=== PATIENT | female | born 1950 | race Caucasian/White ===

== ENCOUNTER 2017-07-31 16:06 | Inpatient (IN) | payer MEDICAID, OTHER ==
[~2017-07-31] VITALS: Ht 162.6 cm; Wt 68.0 kg
[2017-07-31] MEDS ORDERED: SODIUM CHLORIDE 0.9% 1,000 ML IV ONE (16:20)
[2017-07-31] MEDS ORDERED: ONDANSETRON ODT 4 MG PO ONE (16:30)
[2017-07-31] MEDS ORDERED: PLEASE ENTER ALLERGIES MC SCH (16:30)
[2017-07-31] MEDS ORDERED: SODIUM CHLORIDE FLUSH 10ML SYR IVF ONE (16:30)
[2017-07-31] MEDS ORDERED: SODIUM CHLORIDE 0.9% 1,000ML IVBOLUS ONE (16:30)
[2017-07-31] MEDS ORDERED: ONDANSETRON ODT 4 MG ONE (16:30)
[2017-07-31] MEDS ORDERED: LORazepam 2 MG/ML, 1ML ONE (16:30)
[2017-07-31] MEDS ORDERED: LORazepam 2 MG/ML, 1ML IVPush ONE (16:30)
[2017-07-31 16:48] LABS: BASOPHILS # (AUTO) 0.05 x10^3/uL (0-0.1); BASOPHILS % (AUTO) 1 % (0-1); EOSINOPHILS # (AUTO) 0.01 x10^3/uL (0-0.4); EOSINOPHILS % (AUTO) 0 % (1-7); LYMPHOCYTES # (AUTO) 0.87 x10^3/uL (1-3.4); LYMPHOCYTES % (AUTO) 13 % (22-44); MD NO; MEAN CORPUSCULAR HEMOGLOBIN 28.7 pg (27.0-34.8); MEAN CORPUSCULAR VOLUME 86.9 fL (80-100); MONOCYTES # (AUTO) 0.53 x10^3/uL (0.2-0.8); MONOCYTES % (AUTO) 8 % (2-9); NEUTROPHILS # (AUTO) 5.17 x10^3/uL (1.8-6.8); NEUTROPHILS % (AUTO) 78 % (42-75); PLATELET COUNT 409 x10^3/uL (130-400); RED CELL DISTRIBUTION WIDTH 14.4 % (9.6-15.2)
[2017-07-31 16:57] LABS: ALANINE AMINOTRANSFERASE 22 U/L (12-78); ANION GAP 12 mmol/L (5-15); CALCIUM 9.4 mg/dL (8.5-10.1); CHLORIDE 99 mmol/L (98-107); CREATININE 1.22 mg/dL (0.55-1.02)
[2017-07-31 17:00] LABS: ALKALINE PHOSPHATASE 103 U/L (45-117); BILIRUBIN,TOTAL 0.4 mg/dL (0.2-1.0)
[2017-07-31] MEDS ORDERED: POTASSIUM CHLORIDE 20 MEQ TAB.ER.PRT ONE (17:32)
[2017-07-31] MEDS ORDERED: NS + 40MEQ KCL 1,000 ML IV ONE (17:32)
[2017-07-31] MEDS ORDERED: DIAZ5TAB PO (17:48)
[2017-07-31] MEDS ORDERED: HYDR25TA6 PO (17:48)
[2017-07-31] MEDS ORDERED: ESCI20TA10 PO (17:48)
[2017-07-31] MEDS ORDERED: CARB200T PO (17:48)
[2017-07-31] MEDS ORDERED: OMEP-110 PO (17:51)
[2017-07-31] MEDS ORDERED: PROP80CA12 PO (17:53)
[2017-07-31] MEDS ORDERED: POTASSIUM CHLORIDE 40 MEQ in SODIUM CHLORIDE 0.9% 1,000 ML IV ONE (18:00)
[2017-07-31] MEDS ORDERED: POTASSIUM CHLORIDE 20 MEQ TAB.ER.PRT PO ONE (18:00)
[2017-07-31] MEDS ORDERED: SODIUM CHLORIDE FLUSH 10ML SYR IVF PRN (18:30)
[2017-07-31] MEDS ORDERED: BISACODYL 10 MG SUPP PR PRN (19:00)
[2017-07-31] MEDS ORDERED: ONDANSETRON 2MG/ML, 2ML IVPush PRN (19:00)
[2017-07-31] MEDS ORDERED: ACETAMINOPHEN 325 MG TABLET PO PRN (19:00)
[2017-07-31] MEDS ORDERED: DIAZEPAM 5 MG TABLET ONE (20:24)
[2017-07-31] MEDS ORDERED: METOCLOPRAMIDE 5 MG/ML, 2ML ONE (20:24)
[2017-07-31] MEDS: METOCLOPRAMIDE 5 MG/ML, 2ML IVPush PRN (20:28)
[2017-07-31] MEDS: DIAZEPAM 5 MG TABLET PO SCH (20:28)
[2017-07-31 21:00] VITALS: BP 175/87
[2017-07-31] MEDS: NS + 40MEQ KCL 1,000 ML IV SCH (23:21)
[2017-07-31] MEDS: HEPARIN 5,000 UNITS/ML, 1ML SQ SCH (23:21)
[2017-07-31] MEDS: OXYcodone IR 5MG TABLET PO PRN (23:22)
[2017-07-31] MEDS: PROPRANOLOL 40 MG TABLET PO SCH (23:22)
[2017-07-31] MEDS: CARBAMAZEPINE 200 MG TABLET PO SCH (23:22)
[2017-08-01 00:52] VITALS: BP 167/96
[2017-08-01 04:08] LABS: MICROSCOPIC NOT IND
[2017-08-01 04:10] LABS: CULTURE INDICATED? NO
[2017-08-01] MEDS: METOCLOPRAMIDE 5 MG/ML, 2ML IVPush PRN (04:14)
[2017-08-01] MEDS: CARBAMAZEPINE 200 MG TABLET PO SCH ×4 (06:00→21:50)
[2017-08-01 06:03] LABS: ALBUMIN 3.7 g/dL (3.4-5.0); ANION GAP 10 mmol/L (5-15); CALCIUM 7.8 mg/dL (8.5-10.1); CHLORIDE 109 mmol/L (98-107)
[2017-08-01 06:04] LABS: BASOPHILS # (AUTO) 0.02 x10^3/uL (0-0.1); BASOPHILS % (AUTO) 0 % (0-1); EOSINOPHILS % (AUTO) 0 % (1-7); LYMPHOCYTES # (AUTO) 0.88 x10^3/uL (1-3.4); LYMPHOCYTES % (AUTO) 11 % (22-44); MD NO; MEAN CORPUSCULAR HEMOGLOBIN 29.2 pg (27.0-34.8); MEAN CORPUSCULAR HGB CONC 33.1 g/dL (32.4-35.8); MEAN CORPUSCULAR VOLUME 88.4 fL (80-100); MEAN PLATELET VOLUME 8.2 fL (7.4-10.4); MONOCYTES # (AUTO) 0.23 x10^3/uL (0.2-0.8); MONOCYTES % (AUTO) 3 % (2-9); NEUTROPHILS # (AUTO) 6.93 x10^3/uL (1.8-6.8); NEUTROPHILS % (AUTO) 86 % (42-75); PLATELET COUNT 395 x10^3/uL (130-400); RED BLOOD COUNT 4.85 x10^6/uL (3.82-5.3); RED CELL DISTRIBUTION WIDTH 14.3 % (9.6-15.2)
[2017-08-01 06:07] LABS: ALANINE AMINOTRANSFERASE 21 U/L (12-78); ALKALINE PHOSPHATASE 91 U/L (45-117); BILIRUBIN,TOTAL 0.4 mg/dL (0.2-1.0); CREATININE 0.84 mg/dL (0.55-1.02); TOTAL PROTEIN 7.4 g/dL (6.4-8.2)
[2017-08-01] MEDS: HEPARIN 5,000 UNITS/ML, 1ML SQ SCH ×3 (06:18→22:00)
[2017-08-01] MEDS: NS + 40MEQ KCL 1,000 ML IV SCH (06:18)
[2017-08-01] MEDS: OXYcodone IR 5MG TABLET PO PRN ×3 (06:18→21:50)
[2017-08-01 08:24] VITALS: BP 136/75
[2017-08-01] MEDS ORDERED: ONDANSETRON ODT 4 MG PO PRN (08:30)
[2017-08-01] MEDS: CITALOPRAM 20 MG TABLET PO SCH (09:29)
[2017-08-01] MEDS: ISOSORBIDE DINITRATE 10 MG TABLET PO SCH ×3 (09:30→21:50)
[2017-08-01] MEDS: PROPRANOLOL 40 MG TABLET PO SCH ×2 (09:31→21:55)
[2017-08-01] MEDS: DIAZEPAM 5 MG TABLET PO SCH ×3 (09:37→21:51)
[2017-08-01] MEDS ORDERED: PROMETHAZINE 25 MG SUPP PR PRN (13:00)
[2017-08-01] MEDS: ONDANSETRON ODT 4 MG PO SCH ×2 (15:30→21:51)
[2017-08-01 16:00] VITALS: BP 111/66
[2017-08-01] MEDS: LACTOBACILLUS CHEW TABLET PO SCH ×2 (16:00→21:51)
[2017-08-01] MEDS ORDERED: SINCALIDE (KINEVAC) 5 MCG ONE (20:22)
[2017-08-01 21:24] VITALS: BP 183/76
[2017-08-02 01:00] VITALS: BP 155/76
[2017-08-02] MEDS: METOCLOPRAMIDE 5 MG/ML, 2ML IVPush PRN (01:20)
[2017-08-02] MEDS: ONDANSETRON ODT 4 MG PO SCH ×2 (04:12→08:30)
[2017-08-02 05:19] LABS: BASOPHILS # (AUTO) 0.02 x10^3/uL (0-0.1); BASOPHILS % (AUTO) 0 % (0-1); EOSINOPHILS % (AUTO) 0 % (1-7); LYMPHOCYTES # (AUTO) 1.79 x10^3/uL (1-3.4); LYMPHOCYTES % (AUTO) 21 % (22-44); MD NO; MEAN CORPUSCULAR HEMOGLOBIN 29.3 pg (27.0-34.8); MEAN CORPUSCULAR HGB CONC 33.3 g/dL (32.4-35.8); MEAN CORPUSCULAR VOLUME 87.9 fL (80-100); MEAN PLATELET VOLUME 8.1 fL (7.4-10.4); MONOCYTES # (AUTO) 0.52 x10^3/uL (0.2-0.8); MONOCYTES % (AUTO) 6 % (2-9); NEUTROPHILS % (AUTO) 73 % (42-75); PLATELET COUNT 382 x10^3/uL (130-400); RED CELL DISTRIBUTION WIDTH 14.5 % (9.6-15.2)
[2017-08-02 05:22] LABS: INTERNATIONAL NORMALIZED RATIO 0.96 (0.93-1.1)
[2017-08-02 05:30] LABS: ANION GAP 10 mmol/L (5-15); CALCIUM 8.1 mg/dL (8.5-10.1); CHLORIDE 104 mmol/L (98-107); CREATININE 0.73 mg/dL (0.55-1.02)
[2017-08-02 05:31] LABS: ALANINE AMINOTRANSFERASE 20 U/L (12-78); ALBUMIN 3.5 g/dL (3.4-5.0)
[2017-08-02 05:33] LABS: ALKALINE PHOSPHATASE 85 U/L (45-117); BILIRUBIN,TOTAL 0.4 mg/dL (0.2-1.0); TOTAL PROTEIN 7.2 g/dL (6.4-8.2)
[2017-08-02] MEDS: CARBAMAZEPINE 200 MG TABLET PO SCH ×4 (05:52→21:28)
[2017-08-02] MEDS: HEPARIN 5,000 UNITS/ML, 1ML SQ SCH ×3 (05:53→21:35)
[2017-08-02 07:06] VITALS: BP 169/79
[2017-08-02] MEDS: DIAZEPAM 5 MG TABLET PO SCH ×3 (09:00→21:37)
[2017-08-02] MEDS: LACTOBACILLUS CHEW TABLET PO SCH ×3 (09:00→21:35)
[2017-08-02] MEDS: ISOSORBIDE DINITRATE 20 MG TABLET PO SCH ×3 (09:00→21:30)
[2017-08-02] MEDS ORDERED: PROPOFOL 50 ML ONE (09:48)
[2017-08-02] MEDS ORDERED: MIDAZOLAM 1 MG/ML, 2ML ONE (09:48)
[2017-08-02] MEDS ORDERED: KETOROLAC 30 MG/1 ML ONE (10:18)
[2017-08-02] MEDS ORDERED: DEXAMETHASONE 4 MG/ML, 5ML ONE (10:18)
[2017-08-02] MEDS ORDERED: ONDANSETRON ODT 8 MG PO PRN (10:30)
[2017-08-02] MEDS ORDERED: hydrALAzine 20 MG/ML, 1ML IV PRN (10:30)
[2017-08-02] MEDS ORDERED: LABETALOL 5MG/ML, 20ML IV PRN (10:30)
[2017-08-02] MEDS ORDERED: MEPERIDINE/PF 25MG/0.5ML IVPush PRN (10:30)
[2017-08-02] MEDS ORDERED: ALBUTEROL SULFATE 2.5 MG/3 ML NPPB PRN (10:30)
[2017-08-02] MEDS ORDERED: OXYcodone 5 MG/5 ML ORAL.SOL UDC PO PRN (10:30)
[2017-08-02] MEDS ORDERED: ACETAMINOPHEN 325 MG TABLET PO PRN (10:30)
[2017-08-02] MEDS ORDERED: EPHEDRINE 50 MG/ML, 1ML IVPush PRN (10:30)
[2017-08-02] MEDS ORDERED: FENTANYL PF 100 MCG/2ML IV PRN (10:30)
[2017-08-02] MEDS ORDERED: HYDROcodone/APAP 7.5-325MG/15ML UDC PO PRN (10:30)
[2017-08-02] MEDS ORDERED: MIDAZOLAM 1 MG/ML, 2ML IV PRN (10:30)
[2017-08-02] MEDS ORDERED: PROMETHAZINE 25 MG/ML, 1ML IV PRN (10:30)
[2017-08-02] MEDS ORDERED: HALOPERIDOL 5 MG/ML IV PRN (10:30)
[2017-08-02] MEDS ORDERED: PROMETHAZINE 25 MG/ML, 1ML ONE (10:59)
[2017-08-02] MEDS ORDERED: hydrALAzine 20 MG/ML, 1ML ONE (11:12)
[2017-08-02] MEDS ORDERED: FENTANYL PF 100 MCG/2ML ONE (11:20)
[2017-08-02 12:21] VITALS: BP 110/64
[2017-08-02] MEDS: SUCRALFATE 1 GM/10 ML UDC PO SCH ×3 (13:04→21:37)
[2017-08-02] MEDS: NS + 20MEQ KCL 1,000 ML IV SCH (13:05)
[2017-08-02] MEDS: PANTOPROZOLE 40MG TABLET PO SCH (13:05)
[2017-08-02] MEDS: OXYcodone IR 5MG TABLET PO PRN ×2 (13:05→20:08)
[2017-08-02] MEDS: CITALOPRAM 20 MG TABLET PO SCH (13:30)
[2017-08-02] MEDS: PROPRANOLOL 40 MG TABLET PO SCH ×2 (13:35→21:36)
[2017-08-02] MEDS ORDERED: ONDANSETRON 4 MG TABLET ONE (14:30)
[2017-08-02 18:35] VITALS: BP 159/85
[2017-08-03] VITALS (13 sets, daily range): BP systolic 83–189; BP diastolic 51–114
[2017-08-03] MEDS: PANTOPROZOLE 40MG TABLET PO SCH ×2 (01:04→11:35)
[2017-08-03] MEDS: AMLODIPINE 5 MG TABLET PO SCH ×2 (01:33→09:04)
[2017-08-03] MEDS: OXYcodone IR 5MG TABLET PO PRN ×3 (02:16→17:25)
[2017-08-03] MEDS ORDERED: ENALAPRILAT 1.25 MG/ML, 2ML IV PRN (02:30)
[2017-08-03] MEDS: CARBAMAZEPINE 200 MG TABLET PO SCH ×4 (06:00→21:45)
[2017-08-03] MEDS: HEPARIN 5,000 UNITS/ML, 1ML SQ SCH ×3 (06:19→21:47)
[2017-08-03] MEDS: NS + 20MEQ KCL 1,000 ML IV SCH (06:19)
[2017-08-03] MEDS: SUCRALFATE 1 GM/10 ML UDC PO SCH ×4 (06:20→21:47)
[2017-08-03 06:22] LABS: ANION GAP 10 mmol/L (5-15); CALCIUM 8.4 mg/dL (8.5-10.1); CHLORIDE 101 mmol/L (98-107); CREATININE 0.64 mg/dL (0.55-1.02)
[2017-08-03] MEDS ORDERED: POTASSIUM CHLORIDE 40 MEQ in SODIUM CHLORIDE 0.9% 500 ML IV ONE (09:00)
[2017-08-03] MEDS: DIAZEPAM 5 MG TABLET PO SCH ×3 (09:04→21:47)
[2017-08-03] MEDS: LACTOBACILLUS CHEW TABLET PO SCH ×3 (09:04→21:47)
[2017-08-03] MEDS: CITALOPRAM 20 MG TABLET PO SCH (09:04)
[2017-08-03] MEDS: PROPRANOLOL 40 MG TABLET PO SCH ×2 (10:18→21:45)
[2017-08-03] MEDS: ISOSORBIDE DINITRATE 20 MG TABLET PO SCH ×3 (10:19→21:45)
[2017-08-03] MEDS ORDERED: SODIUM CHLORIDE 0.9%, 500ML IVBOLUS ONE (14:00)
[2017-08-03] MEDS ORDERED: AMLO5TAB4 PO (21:49)
[2017-08-04] MEDS: PANTOPROZOLE 40MG TABLET PO SCH (00:04)
[2017-08-04] MEDS: OXYcodone IR 5MG TABLET PO PRN ×2 (00:04→10:50)
[2017-08-04 00:05] VITALS: BP 123/82
[2017-08-04 02:31] VITALS: BP 123/81
[2017-08-04] MEDS: SUCRALFATE 1 GM/10 ML UDC PO SCH (06:01)
[2017-08-04] MEDS: NS + 20MEQ KCL 1,000 ML IV SCH (06:01)
[2017-08-04] MEDS: HEPARIN 5,000 UNITS/ML, 1ML SQ SCH (06:01)
[2017-08-04] MEDS: CARBAMAZEPINE 200 MG TABLET PO SCH (06:03)
[2017-08-04 07:09] VITALS: BP 121/76
[2017-08-04] MEDS ORDERED: PANT40TA5 PO (08:16)
[2017-08-04] MEDS ORDERED: SUCR1ORA5 PO ×2 (08:16→09:50)
[2017-08-04] MEDS ORDERED: AMLO2.5T PO (08:16)
[2017-08-04] MEDS: DIAZEPAM 5 MG TABLET PO SCH (08:24)
[2017-08-04] MEDS: ISOSORBIDE DINITRATE 20 MG TABLET PO SCH (08:24)
[2017-08-04] MEDS: PROPRANOLOL 40 MG TABLET PO SCH (08:24)
[2017-08-04] MEDS: CITALOPRAM 20 MG TABLET PO SCH (08:25)
[2017-08-04] MEDS: AMLODIPINE 5 MG TABLET PO SCH (08:25)
[2017-08-04] MEDS: LACTOBACILLUS CHEW TABLET PO SCH (08:25)
[2017-08-04 08:30] LABS: ANION GAP 5 mmol/L (5-15); CHLORIDE 113 mmol/L (98-107); CREATININE 0.84 mg/dL (0.55-1.02)
[2017-08-04] MEDS ORDERED: ONDA4TAB10 PO (09:31)
[2017-08-04] MEDS ORDERED: ACID1TAB7 PO (09:31)
== END 2017-08-04 11:09 | disposition home or self-care (01) | DRG 384 ==
LOC: ED 18:19 → EDIP 18:20 → ED 18:44 → 4EST 20:56
PROVIDERS: ADMIT Internal Medicine; ATTEND Internal Medicine
PROC: 0DB68ZX Excision of Stomach, Via Natural or Artificial Opening Endoscopic, Diagnostic (ICD-10-PCS; 2017-08-02)
PROC: 0DB98ZX Excision of Duodenum, Via Natural or Artificial Opening Endoscopic, Diagnostic (ICD-10-PCS; principal; 2017-08-02 10:00)
DX: K25.9 Gastric ulcer, unspecified as acute or chronic, without hemorrhage or perforation (principal); N17.9 Acute kidney failure, unspecified; E86.0 Dehydration; K21.0 Gastro-esophageal reflux disease with esophagitis; E87.6 Hypokalemia; F17.200 Nicotine dependence, unspecified, uncomplicated; F32.9 Major depressive disorder, single episode, unspecified; F41.9 Anxiety disorder, unspecified; K29.70 Gastritis, unspecified, without bleeding; G47.00 Insomnia, unspecified; I10 Essential (primary) hypertension; K44.9 Diaphragmatic hernia without obstruction or gangrene; R13.14 Dysphagia, pharyngoesophageal phase; Z66 Do not resuscitate; Z86.19 Personal history of other infectious and parasitic diseases; Z90.710 Acquired absence of both cervix and uterus
CPT/HCPCS: 36415; 74022; 76700; 78227; 80048; 80053; 81003; 83690; 83735; 84484; 85025; 85610; 88305; 93005; 96361; 96374; 96375; J1100; J1644; J1885; J2250; J2405; J2550; J2704; J3010; J3480; Q0162; A9537; J0360; J2060; J2765; J2805; J7030; J7040

== ENCOUNTER 2017-10-13 11:49 | Inpatient (IN) | payer MEDICAID ==
[~2017-10-13] VITALS: Ht 162.6 cm; Wt 68.5 kg
[~2017-10-13 11:49] MED LIST: ACID1TAB7 PO; AMLO2.5T PO; AMLO5TAB4 PO; CARB200T PO; DIAZ5TAB PO; ESCI20TA10 PO; HYDR25TA6 PO; OMEP-110 PO; ONDA4TAB10 PO; PANT40TA5 PO; PROP80CA12 PO; SUCR1ORA5 PO
[2017-10-13] MEDS ORDERED: MORPHINE SULFATE 4 MG/ML, 1ML IVPush ONE (12:30)
[2017-10-13] MEDS ORDERED: MECLIZINE CHEWABLE 25 MG TAB PO ONE (12:30)
[2017-10-13 12:36] LABS: BASOPHILS # (AUTO) 0.05 x10^3/uL (0-0.1); BASOPHILS % (AUTO) 1 % (0-1); EOSINOPHILS # (AUTO) 0.07 x10^3/uL (0-0.4); EOSINOPHILS % (AUTO) 1 % (1-7); LYMPHOCYTES # (AUTO) 1.37 x10^3/uL (1-3.4); LYMPHOCYTES % (AUTO) 14 % (22-44); MD NO; MEAN CORPUSCULAR HEMOGLOBIN 28.7 pg (27.0-34.8); MEAN CORPUSCULAR HGB CONC 33.5 g/dL (32.4-35.8); MEAN CORPUSCULAR VOLUME 85.6 fL (80-100); MONOCYTES # (AUTO) 0.59 x10^3/uL (0.2-0.8); MONOCYTES % (AUTO) 6 % (2-9); NEUTROPHILS # (AUTO) 8.01 x10^3/uL (1.8-6.8); NEUTROPHILS % (AUTO) 80 % (42-75); PLATELET COUNT 301 x10^3/uL (130-400); RED BLOOD COUNT 4.93 x10^6/uL (3.82-5.3); RED CELL DISTRIBUTION WIDTH 13.9 % (9.6-15.2)
[2017-10-13] MEDS ORDERED: MECLIZINE CHEWABLE 25 MG TAB ONE (12:38)
[2017-10-13 12:48] LABS: ALBUMIN 3.4 g/dL (3.4-5.0); ANION GAP 5 mmol/L (5-15); CALCIUM 8.6 mg/dL (8.5-10.1); CHLORIDE 109 mmol/L (98-107)
[2017-10-13 12:53] LABS: ALANINE AMINOTRANSFERASE 23 U/L (12-78); ALKALINE PHOSPHATASE 113 U/L (45-117); BILIRUBIN,TOTAL 0.4 mg/dL (0.2-1.0); CREATININE 0.98 mg/dL (0.55-1.02); TOTAL PROTEIN 7.2 g/dL (6.4-8.2)
[2017-10-13 12:54] LABS: TROPONIN I 0.573 ng/mL (0.000-0.045)
[2017-10-13 12:58] LABS: AMPHETAMINE SCREEN, URINE Negative (Negative); BARBITURATE SCREEN, URINE Negative (Negative); BENZODIAZEPINE SCREEN, URINE Positive (Negative); CANNABINOID SCREEN, URINE Negative (Negative); COCAINE SCREEN, URINE Negative (Negative); METHADONE SCREEN, URINE Negative (Negative); OPIATE SCREEN, URINE Negative (Negative)
[2017-10-13] MEDS ORDERED: SODIUM CHLORIDE 0.9% 1,000ML IVBOLUS ONE (13:00)
[2017-10-13] MEDS ORDERED: MORPHINE SULFATE 4 MG/ML, 1ML ONE (13:27)
[2017-10-13] MEDS ORDERED: ASPIRIN 325 MG TABLET PO ONE (14:00)
[2017-10-13] MEDS ORDERED: ASPIRIN 325 MG TABLET ONE (14:17)
[2017-10-13] MEDS ORDERED: SODIUM CHLORIDE 0.9% 1,000 ML IV SCH (14:24)
[2017-10-13] MEDS ORDERED: NITROGLYCERIN 0.4 MG BOTTLE (25 TABS) SL PRN (14:30)
[2017-10-13] MEDS ORDERED: LABETALOL 5MG/ML, 20ML IVPush PRN (14:30)
[2017-10-13] MEDS ORDERED: OMNIPAQUE 350 MG/ML, 100ML BOTTLE ONE (15:01)
[2017-10-13] MEDS ORDERED: GADOBUTROL 7.5 MMOL/7.5 ML PFS ONE (15:04)
[2017-10-13 15:29] VITALS: BP 153/97
[2017-10-13] MEDS ORDERED: CARBAMAZEPINE 200 MG TABLET PO SCH (16:00)
[2017-10-13] MEDS: ACETAMINOPHEN 325 MG TABLET PO PRN ×2 (16:46→20:44)
[2017-10-13] MEDS: DIAZEPAM 5 MG TABLET PO SCH ×2 (16:46→20:34)
[2017-10-13] MEDS: SUCRALFATE 1 GM/10 ML UDC PO SCH ×2 (16:46→20:28)
[2017-10-13] MEDS: ENOXAPARIN 40 MG/0.4 ML SQ SCH (16:51)
[2017-10-13] MEDS ORDERED: KETOROLAC 30 MG/1 ML IVPush PRN (18:00)
[2017-10-13 18:58] VITALS: BP 128/87
[2017-10-13] MEDS ORDERED: SODIUM BICARB 8.4%, 50ML SYRINGE IVPush ONE (19:00)
[2017-10-13 20:33] VITALS: BP 149/98
[2017-10-13] MEDS: PROPRANOLOl 80 MG CAP.SA.24H PO SCH (20:34)
[2017-10-13] MEDS: ONDANSETRON 2MG/ML, 2ML IVPush PRN (21:22)
[2017-10-13 23:12] VITALS: BP 135/84
[2017-10-14 01:11] VITALS: BP 136/77
[2017-10-14] MEDS: SODIUM CHLORIDE 0.9% 1,000 ML IV SCH ×2 (04:30→22:24)
[2017-10-14] MEDS: ASPIRIN 325 MG TABLET EC PO SCH (05:17)
[2017-10-14 05:58] LABS: CHLORIDE 110 mmol/L (98-107)
[2017-10-14 06:00] LABS: BASOPHILS # (AUTO) 0.04 x10^3/uL (0-0.1); BASOPHILS % (AUTO) 1 % (0-1); EOSINOPHILS # (AUTO) 0.11 x10^3/uL (0-0.4); EOSINOPHILS % (AUTO) 2 % (1-7); LYMPHOCYTES # (AUTO) 2.43 x10^3/uL (1-3.4); LYMPHOCYTES % (AUTO) 32 % (22-44); MD NO; MEAN CORPUSCULAR HEMOGLOBIN 29.2 pg (27.0-34.8); MEAN CORPUSCULAR HGB CONC 33.2 g/dL (32.4-35.8); MEAN CORPUSCULAR VOLUME 87.9 fL (80-100); MEAN PLATELET VOLUME 8.4 fL (7.4-10.4); MONOCYTES # (AUTO) 0.72 x10^3/uL (0.2-0.8); MONOCYTES % (AUTO) 10 % (2-9); NEUTROPHILS # (AUTO) 4.25 x10^3/uL (1.8-6.8); NEUTROPHILS % (AUTO) 56 % (42-75); PLATELET COUNT 250 x10^3/uL (130-400); RED BLOOD COUNT 4.45 x10^6/uL (3.82-5.3); RED CELL DISTRIBUTION WIDTH 14.3 % (9.6-15.2)
[2017-10-14 06:07] LABS: ALANINE AMINOTRANSFERASE 22 U/L (12-78); ALBUMIN 2.9 g/dL (3.4-5.0); ALKALINE PHOSPHATASE 93 U/L (45-117); ANION GAP 8 mmol/L (5-15); BILIRUBIN,TOTAL 0.2 mg/dL (0.2-1.0); CALCIUM 8.4 mg/dL (8.5-10.1); CREATININE 0.79 mg/dL (0.55-1.02); TRIGLYCERIDES 219 mg/dL (50-200)
[2017-10-14 06:08] LABS: CHOL/HDL RATIO 4.7; CHOLESTEROL, TOTAL 202 mg/dL (140-239); HDL CHOL % 21 % (28-40); HDL CHOLESTEROL (DIRECT) 43 mg/dL (40-60); LDL CHOLESTEROL,CALCULATED 115 mg/dL (54-169); LDL/HDL RATIO 2.7 (0.5-3.0); VLDL CHOLESTEROL 44 mg/dL (0-25)
[2017-10-14 07:14] VITALS: BP 137/88
[2017-10-14] MEDS: DIAZEPAM 5 MG TABLET PO SCH ×3 (08:26→20:42)
[2017-10-14] MEDS: CITALOPRAM 20 MG TABLET PO SCH (08:26)
[2017-10-14] MEDS: AMLODIPINE 2.5 MG TABLET PO SCH (08:26)
[2017-10-14] MEDS: PROPRANOLOl 80 MG CAP.SA.24H PO SCH ×2 (08:26→20:42)
[2017-10-14] MEDS: SUCRALFATE 1 GM/10 ML UDC PO SCH ×4 (08:29→20:41)
[2017-10-14] MEDS: ONDANSETRON 2MG/ML, 2ML IVPush PRN (11:24)
[2017-10-14] MEDS ORDERED: FENTANYL PF 100 MCG/2ML ONE (13:32)
[2017-10-14] MEDS ORDERED: MIDAZOLAM 1 MG/ML, 2ML ONE (13:32)
[2017-10-14] MEDS ORDERED: DIPHENHYDRAMINE 50 MG/ML, 1ML ONE (13:33)
[2017-10-14] MEDS ORDERED: LIDOCAINE-MPF 2%, 2ML ONE (13:35)
[2017-10-14] MEDS ORDERED: HEPARIN 1,000 UNITS/ML, 10ML ONE (13:37)
[2017-10-14] MEDS ORDERED: VERAPAMIL 2.5 MG/ML, 2ML ONE (13:37)
[2017-10-14] MEDS: ENOXAPARIN 40 MG/0.4 ML SQ SCH (14:47)
[2017-10-14 15:21] VITALS: BP 125/78
[2017-10-14 20:40] VITALS: BP 126/80
[2017-10-15 00:12] VITALS: BP 125/81
[2017-10-15] MEDS: ASPIRIN 325 MG TABLET EC PO SCH (05:27)
[2017-10-15] MEDS: SODIUM CHLORIDE 0.9% 1,000 ML IV SCH ×2 (05:36→17:51)
[2017-10-15 05:47] LABS: ANION GAP 9 mmol/L (5-15); CALCIUM 8.8 mg/dL (8.5-10.1); CHLORIDE 110 mmol/L (98-107)
[2017-10-15 05:48] LABS: BASOPHILS # (AUTO) 0.03 x10^3/uL (0-0.1); BASOPHILS % (AUTO) 0 % (0-1); EOSINOPHILS # (AUTO) 0.13 x10^3/uL (0-0.4); EOSINOPHILS % (AUTO) 2 % (1-7); LYMPHOCYTES # (AUTO) 1.88 x10^3/uL (1-3.4); LYMPHOCYTES % (AUTO) 24 % (22-44); MD NO; MEAN CORPUSCULAR HEMOGLOBIN 28.9 pg (27.0-34.8); MEAN CORPUSCULAR HGB CONC 33.4 g/dL (32.4-35.8); MEAN CORPUSCULAR VOLUME 86.4 fL (80-100); MEAN PLATELET VOLUME 8.2 fL (7.4-10.4); MONOCYTES # (AUTO) 0.61 x10^3/uL (0.2-0.8); MONOCYTES % (AUTO) 8 % (2-9); NEUTROPHILS % (AUTO) 67 % (42-75); PLATELET COUNT 263 x10^3/uL (130-400); RED BLOOD COUNT 4.48 x10^6/uL (3.82-5.3); RED CELL DISTRIBUTION WIDTH 14.2 % (9.6-15.2)
[2017-10-15 05:54] LABS: CREATININE 0.86 mg/dL (0.55-1.02); TROPONIN I 0.998 ng/mL (0.000-0.045)
[2017-10-15 06:35] VITALS: BP 139/85
[2017-10-15 07:12] VITALS: BP 135/90
[2017-10-15] MEDS: AMLODIPINE 2.5 MG TABLET PO SCH (07:47)
[2017-10-15] MEDS: CITALOPRAM 20 MG TABLET PO SCH (07:47)
[2017-10-15] MEDS: DIAZEPAM 5 MG TABLET PO SCH ×3 (07:47→20:33)
[2017-10-15] MEDS: SUCRALFATE 1 GM/10 ML UDC PO SCH ×4 (07:47→20:33)
[2017-10-15] MEDS: PROPRANOLOl 80 MG CAP.SA.24H PO SCH ×2 (07:48→20:33)
[2017-10-15] MEDS ORDERED: SODIUM CHLORIDE 0.9% 1,000ML IVBOLUS ONE (12:30)
[2017-10-15 13:38] VITALS: BP 129/80
[2017-10-15] MEDS: ENOXAPARIN 40 MG/0.4 ML SQ SCH (17:50)
[2017-10-15] MEDS: ACETAMINOPHEN 325 MG TABLET PO PRN (19:11)
[2017-10-15 19:14] VITALS: BP 145/85
[2017-10-16] MEDS: SODIUM CHLORIDE 0.9% 1,000 ML IV SCH ×3 (01:18→17:30)
[2017-10-16 02:26] VITALS: BP 135/88
[2017-10-16] MEDS: ASPIRIN 325 MG TABLET EC PO SCH (05:00)
[2017-10-16 07:59] VITALS: BP 156/84
[2017-10-16] MEDS: SUCRALFATE 1 GM/10 ML UDC PO SCH ×3 (08:20→16:09)
[2017-10-16] MEDS: PROPRANOLOl 80 MG CAP.SA.24H PO SCH (08:21)
[2017-10-16] MEDS: DIAZEPAM 5 MG TABLET PO SCH ×2 (08:21→16:06)
[2017-10-16] MEDS: AMLODIPINE 2.5 MG TABLET PO SCH (08:21)
[2017-10-16] MEDS: CITALOPRAM 20 MG TABLET PO SCH (08:21)
[2017-10-16] MEDS: ACETAMINOPHEN 325 MG TABLET PO PRN ×2 (13:21→16:06)
[2017-10-16] MEDS: ENOXAPARIN 40 MG/0.4 ML SQ SCH (14:30)
[2017-10-16 15:11] VITALS: BP 152/85
== END 2017-10-16 17:49 | DRG 65 ==
LOC: ED 11:54 → EDIP 13:35 → 5SO 15:13
PROVIDERS: ADMIT Hospitalist; ATTEND Hospitalist
PROC: 4A023N7 Measurement of Cardiac Sampling and Pressure, Left Heart, Percutaneous Approach (ICD-10-PCS; principal; 2017-10-14)
PROC: B2111ZZ Fluoroscopy of Multiple Coronary Arteries using Low Osmolar Contrast (ICD-10-PCS; 2017-10-14)
PROC: B2151ZZ Fluoroscopy of Left Heart using Low Osmolar Contrast (ICD-10-PCS; 2017-10-14)
DX: I63.9 Cerebral infarction, unspecified (principal); M62.82 Rhabdomyolysis; I24.9 Acute ischemic heart disease, unspecified; I42.9 Cardiomyopathy, unspecified; J98.11 Atelectasis; E78.5 Hyperlipidemia, unspecified; E86.9 Volume depletion, unspecified; F32.9 Major depressive disorder, single episode, unspecified; F41.9 Anxiety disorder, unspecified; G89.29 Other chronic pain; I11.9 Hypertensive heart disease without heart failure; M54.10 Radiculopathy, site unspecified; R73.9 Hyperglycemia, unspecified; I25.10 Atherosclerotic heart disease of native coronary artery without angina pectoris; J01.90 Acute sinusitis, unspecified; K21.9 Gastro-esophageal reflux disease without esophagitis; R29.6 Repeated falls; S01.01XA Laceration without foreign body of scalp, initial encounter; W19.XXXA Unspecified fall, initial encounter; Z66 Do not resuscitate; Z79.82 Long term (current) use of aspirin; Z87.11 Personal history of peptic ulcer disease; Z87.891 Personal history of nicotine dependence; Z90.710 Acquired absence of both cervix and uterus; Y92.89 Other specified places as the place of occurrence of the external cause
CPT/HCPCS: 36415; 70450; 70496; 70498; 70553; 71045; 72146; 72148; 80048; 80053; 80061; 80156; 80307; 82550; 82553; 84484; 85025; 93005; 93306; 93458; 96361; 96374; 99156; A9585; C1769; C1894; J1644; J1650; J2250; J2405; J3010; J3490; Q9967; J1200; J7030

== ENCOUNTER 2018-04-17 10:59 | Emergency (ER) | payer MEDICARE, MEDICAID ==
[~2018-04-17] VITALS: Ht 162.6 cm; Wt 64.0 kg
[~2018-04-17 10:59] MED LIST changes: -AMLO2.5T PO; +AMLO2.5T5 PO
--- NOTE | 2018-04-17 11:10 | NUR ---
PT BIB [facility] FOR ABD PAIN, AND VOMITING, WITH ANXIETY. PT HAS BEEN OUT OF [facility] FOR 2 DAYS. BP 196/90, HR 88, O2 SAT 99% RA, FS 161. PT WAS GIVEN 4 MG ZOFRAN AND 100 MCG OF FENTANYL. PT IS ASKING FOR VALIUM. PT IS ALERT, ORIENTED, WITH NAD. PT IS CONNECTED TO THE MONITOR. CALL LIGHT WITHIN REACH.
[2018-04-17] MEDS ORDERED: LORazepam 2 MG/ML, 1ML ONE (11:29)
[2018-04-17] MEDS ORDERED: LORazepam 2 MG/ML, 1ML IVPush ONE (11:30)
[2018-04-17] MEDS ORDERED: SODIUM CHLORIDE FLUSH 10ML SYR IVF ONE (11:30)
--- NOTE | 2018-04-17 11:41 | NUR ---
PT IS UP TO THE BEDSIDE COMMODE, STANDBY ASSIST. TO PROVIDE A URINE SAMPLE.
[2018-04-17 11:53] LABS: BASOPHILS # (AUTO) 0.01 x10^3/uL (0-0.1); BASOPHILS % (AUTO) 0 % (0-1); EOSINOPHILS % (AUTO) 0 % (1-7); LYMPHOCYTES # (AUTO) 0.91 x10^3/uL (1-3.4); LYMPHOCYTES % (AUTO) 8 % (22-44); MD NO; MEAN CORPUSCULAR HEMOGLOBIN 29.6 pg (27.0-34.8); MEAN CORPUSCULAR HGB CONC 32.8 g/dL (32.4-35.8); MEAN PLATELET VOLUME 8.4 fL (7.4-10.4); MONOCYTES # (AUTO) 0.52 x10^3/uL (0.2-0.8); MONOCYTES % (AUTO) 5 % (2-9); NEUTROPHILS % (AUTO) 88 % (42-75); PLATELET COUNT 397 x10^3/uL (130-400); RED BLOOD COUNT 5.29 x10^6/uL (3.82-5.3); RED CELL DISTRIBUTION WIDTH 13.2 % (9.6-15.2)
[2018-04-17 12:09] LABS: ALBUMIN 4.3 g/dL (3.4-5.0); CALCIUM 9.9 mg/dL (8.5-10.1); CHLORIDE 104 mmol/L (98-107)
--- NOTE | 2018-04-17 12:10 | NUR ---
PT IS RESTING IN BED WITH EYES CLOSED, RESPIRATIONS EQUAL AND NON LABORED. NAD. PT IS CONNECTED TO THE MONITOR. CALL LIGHT WITHIN REACH.
[2018-04-17 12:14] LABS: ALANINE AMINOTRANSFERASE 25 U/L (12-78); ALKALINE PHOSPHATASE 87 U/L (45-117); ANION GAP 15 mmol/L (5-15); BILIRUBIN,TOTAL 0.9 mg/dL (0.2-1.0); CREATININE 1.19 mg/dL (0.55-1.02); TOTAL PROTEIN 8.1 g/dL (6.4-8.2)
[2018-04-17 12:31] LABS: MICROSCOPIC INDICATED
[2018-04-17 12:36] LABS: CULTURE INDICATED? NO
[2018-04-17 13:09] VITALS: BP 179/103
--- NOTE | 2018-04-17 13:10 | NUR ---
PT IS RESTING IN BED WITH EYES CLOSED, RESPIRATIONS EQUAL AND NON LABORED. NAD. PT IS CONNECTED TO THE MONITOR. CALL LIGHT WITHIN REACH.
--- NOTE | 2018-04-17 13:47 | NUR ---
Patient given discharge instructions and they have confirmed that they understand the instructions. Patient ambulatory with steady gait.
== END 2018-04-17 13:49 | disposition home or self-care (01) ==
LOC: ED 11:50
DX: E87.6 Hypokalemia (principal); R10.84 Generalized abdominal pain; F13.20 Sedative, hypnotic or anxiolytic dependence, uncomplicated; F32.9 Major depressive disorder, single episode, unspecified; F41.1 Generalized anxiety disorder; I10 Essential (primary) hypertension; Z87.891 Personal history of nicotine dependence; Z90.710 Acquired absence of both cervix and uterus; Z90.49 Acquired absence of other specified parts of digestive tract
CPT/HCPCS: 36415; 80053; 81001; 83690; 85025; 96374; 99283; J2060

== ENCOUNTER 2018-04-28 04:22 | Inpatient (IN) | payer MEDICARE, MEDICAID ==
[~2018-04-28] VITALS: Ht 162.6 cm; Wt 60.4 kg
[2018-04-28] MEDS ORDERED: MAALOX/HYOSCYAMINE/LIDOCAINE 45 ML BTL ONE (04:37)
[2018-04-28] MEDS ORDERED: ONDANSETRON ODT 4 MG ONE (04:49)
[2018-04-28] MEDS ORDERED: FAMOTIDINE 20 MG TABLET ONE (04:49)
--- NOTE | 2018-04-28 04:55 | NUR ---
PT INTERMITTENTLY DOZING MID CONVERSATION. PT HOWEVER REPEATEDLY ASKING FOR PAIN MEDS. PT INFORMED OF WHAT HAS BEEN ORDERED. POC DISCUSSED. PT ENCOURAGED TO ALLOW TIME FOR MEDS TO WORK. PT MILDLY AGREEABLE TO THIS. CALL LIGHT ON LAP. PT AWARE UA IS NEEDED.
[2018-04-28] MEDS ORDERED: ONDANSETRON ODT 4 MG PO ONE (05:00)
[2018-04-28] MEDS ORDERED: FAMOTIDINE 20 MG TABLET PO ONE (05:00)
[2018-04-28] MEDS ORDERED: MAALOX/HYOSCYAMINE/LIDOCAINE 45 ML BTL PO ONE (05:00)
--- NOTE | 2018-04-28 05:09 | NUR ---
PT WAS FOUND TO BE SLEEPING. RR 6, SPO2 80%. PT WAS AWOKEN BY VERBAL COMMAND. PT PLACED ON 2LNC AND NOW SATTING 95%. PT DENIES ETOH. PT DENIES NARCOTICS. POC DISCUSSED. PA INFORMED. WILL CONTINUE TO MONITOR.
[2018-04-28 05:25] LABS: BASOPHILS # (AUTO) 0.03 x10^3/uL (0-0.1); BASOPHILS % (AUTO) 0 % (0-1); EOSINOPHILS # (AUTO) 0.04 x10^3/uL (0-0.4); EOSINOPHILS % (AUTO) 0 % (1-7); LYMPHOCYTES # (AUTO) 1.84 x10^3/uL (1-3.4); LYMPHOCYTES % (AUTO) 21 % (22-44); MD NO; MEAN CORPUSCULAR HEMOGLOBIN 30.1 pg (27.0-34.8); MEAN CORPUSCULAR HGB CONC 33.9 g/dL (32.4-35.8); MEAN CORPUSCULAR VOLUME 88.9 fL (80-100); MEAN PLATELET VOLUME 8.1 fL (7.4-10.4); MONOCYTES % (AUTO) 8 % (2-9); NEUTROPHILS # (AUTO) 6.05 x10^3/uL (1.8-6.8); NEUTROPHILS % (AUTO) 70 % (42-75); PLATELET COUNT 341 x10^3/uL (130-400); RED BLOOD COUNT 5.25 x10^6/uL (3.82-5.3); RED CELL DISTRIBUTION WIDTH 13.3 % (9.6-15.2)
--- NOTE | 2018-04-28 05:39 | NUR ---
PT HAS BEEN AND REMAINS ASLEEP.
[2018-04-28 05:40] LABS: CHLORIDE 97 mmol/L (98-107)
[2018-04-28 05:46] LABS: ALANINE AMINOTRANSFERASE 29 U/L (12-78); ALBUMIN 3.4 g/dL (3.4-5.0); ALKALINE PHOSPHATASE 71 U/L (45-117); ANION GAP 11 mmol/L (5-15); BILIRUBIN,TOTAL 0.7 mg/dL (0.2-1.0); CALCIUM 8.9 mg/dL (8.5-10.1); CREATININE 1.06 mg/dL (0.55-1.02); TOTAL PROTEIN 7.1 g/dL (6.4-8.2)
[2018-04-28] MEDS ORDERED: POTASSIUM CHLORIDE 20 MEQ TAB.ER.PRT ONE (06:08)
--- NOTE | 2018-04-28 06:16 | NUR ---
PA AT BEDSIDE FOR RECHECK. PT REQUESTING PAIN MEDS. PA STATES NO PAIN MEDS. PT UP TO RESTROOM AT THIS TIME.
--- NOTE | 2018-04-28 06:25 | NUR ---
PT WAS HEARD VOMITING IN THE RESTROOM. ONCE PT RETURNED FROM RESTROOM PT WAS ASKED IF SHE WAS MAKING HERSELF THROW UP. PT STATED "YES SO THE POTASSIUM ABSORBS BETTER". PT EDUCATED ON NOT DOING THIS IT WILL EXACERBATE HER SITUATION AND IS DANGEROUS.
[2018-04-28] MEDS ORDERED: POTASSIUM CHLORIDE 40 MEQ in SODIUM CHLORIDE 0.9% 500 ML IV ONE (06:30)
[2018-04-28] MEDS ORDERED: POTASSIUM CHLORIDE 20 MEQ TAB.ER.PRT PO ONE (06:30)
--- NOTE | 2018-04-28 06:35 | NUR ---
DISCUSSING POC PT ADMITS TO MAKING HERSELF VOMIT FOR THE PAST WEEK BECAUSE "I THOUGHT IT WOULD ABSORD MY PILLS BETTER". PT EDUCATED ON APPROPRIATE MEDICATION INGESTION.
--- NOTE | 2018-04-28 06:53 | NUR ---
RECEIVED BEDSIDE REPORT FROM EMILIE OLIVIA.
[2018-04-28 07:04] LABS: TROPONIN I < 0.015 ng/mL (0.000-0.045)
--- NOTE | 2018-04-28 07:46 | NUR ---
PT RESTING ON GURNEY. NO ACUTE DISTRESS NOTED. RESPS EQUAL AND UNLABORED. WILL CONTINUE TO MONITOR.
--- NOTE | 2018-04-28 08:01 | NUR ---
report to julio cesar alejandre pt to ct ct to transfer to floor. pt left with all personal belongings
[2018-04-28] MEDS ORDERED: OMNIPAQUE 350 MG/ML, 100ML BOTTLE ONE (08:06)
[2018-04-28 08:14] LABS: CULTURE INDICATED? YES; MICROSCOPIC INDICATED
[2018-04-28] MEDS ORDERED: ONDANSETRON 2MG/ML, 2ML IVPush PRN (08:30)
[2018-04-28] MEDS ORDERED: hydrALAzine 20 MG/ML, 1ML IVPush PRN (08:30)
[2018-04-28] MEDS ORDERED: POTASSIUM CHLORIDE 40 MEQ in SODIUM CHLORIDE 0.9% 500 ML IV SCH (09:00)
[2018-04-28 09:44] VITALS: BP 181/89
[2018-04-28] MEDS: CEFTRIAXONE PMX 2GM/50ML 50 ML IV SCH (10:24)
[2018-04-28] MEDS: SODIUM CHLORIDE 0.9% 1,000 ML IV SCH ×2 (10:24→18:38)
[2018-04-28] MEDS: HEPARIN 5,000 UNITS/ML, 1ML SQ SCH ×2 (10:25→18:37)
[2018-04-28] MEDS: PANTOPRAZOLE 40 MG IV IVPush SCH ×2 (10:25→20:49)
[2018-04-28] MEDS: morphine SULFATE 10 MG/ML, 1ML IVPush PRN (12:36)
[2018-04-28 13:16] VITALS: BP 160/102
[2018-04-28] MEDS: POTASSIUM CHLORIDE 40 MEQ in SODIUM CHLORIDE 0.9% 500 ML IV SCH ×2 (13:38→18:34)
[2018-04-28] MEDS ORDERED: LORazepam 2 MG/ML, 1ML IVPush PRN (14:00)
[2018-04-28 17:42] VITALS: BP 94/61
[2018-04-28 19:33] VITALS: BP 96/67
[2018-04-29 01:34] VITALS: BP 103/66
[2018-04-29] MEDS: morphine SULFATE 10 MG/ML, 1ML IVPush PRN ×5 (01:45→23:58)
[2018-04-29] MEDS: HEPARIN 5,000 UNITS/ML, 1ML SQ SCH ×3 (01:45→18:24)
[2018-04-29] MEDS: SODIUM CHLORIDE 0.9% 1,000 ML IV SCH ×3 (01:45→18:24)
[2018-04-29 05:54] LABS: BASOPHILS # (AUTO) 0.04 x10^3/uL (0-0.1); BASOPHILS % (AUTO) 1 % (0-1); EOSINOPHILS # (AUTO) 0.06 x10^3/uL (0-0.4); EOSINOPHILS % (AUTO) 1 % (1-7); LYMPHOCYTES # (AUTO) 2.39 x10^3/uL (1-3.4); LYMPHOCYTES % (AUTO) 49 % (22-44); MD NO; MEAN CORPUSCULAR HEMOGLOBIN 30.3 pg (27.0-34.8); MEAN CORPUSCULAR HGB CONC 33.7 g/dL (32.4-35.8); MEAN CORPUSCULAR VOLUME 89.8 fL (80-100); MEAN PLATELET VOLUME 7.9 fL (7.4-10.4); MONOCYTES # (AUTO) 0.45 x10^3/uL (0.2-0.8); MONOCYTES % (AUTO) 9 % (2-9); NEUTROPHILS % (AUTO) 39 % (42-75); PLATELET COUNT 276 x10^3/uL (130-400); RED BLOOD COUNT 3.79 x10^6/uL (3.82-5.3); RED CELL DISTRIBUTION WIDTH 13.5 % (9.6-15.2)
[2018-04-29 06:04] LABS: CHLORIDE 112 mmol/L (98-107)
[2018-04-29 06:15] LABS: ALANINE AMINOTRANSFERASE 17 U/L (12-78); ALBUMIN 2.2 g/dL (3.4-5.0); ALKALINE PHOSPHATASE 47 U/L (45-117); ANION GAP 5 mmol/L (5-15); BILIRUBIN,TOTAL 0.2 mg/dL (0.2-1.0); CALCIUM 7.2 mg/dL (8.5-10.1); CHOL/HDL RATIO 3.6; CHOLESTEROL, TOTAL 138 mg/dL (140-239); CREATININE 0.83 mg/dL (0.55-1.02); HDL CHOL % 28 % (28-40); HDL CHOLESTEROL (DIRECT) 38 mg/dL (40-60); LDL CHOLESTEROL,CALCULATED 77 mg/dL (54-169); TOTAL PROTEIN 4.6 g/dL (6.4-8.2); TRIGLYCERIDES 115 mg/dL (50-200); VLDL CHOLESTEROL 23 mg/dL (0-25)
[2018-04-29 06:43] VITALS: BP 107/68
[2018-04-29] MEDS: PANTOPRAZOLE 40 MG IV IVPush SCH ×2 (08:28→20:02)
[2018-04-29] MEDS ORDERED: MAGNESIUM SULFATE PMX 2GM/50ML 50 ML IV ONE (08:30)
[2018-04-29] MEDS ORDERED: POTASSIUM CHLORIDE 20 MEQ TAB.ER.PRT PO ONE (09:00)
[2018-04-29] MEDS: CEFTRIAXONE PMX 2GM/50ML 50 ML IV SCH (10:43)
[2018-04-29] MEDS: POTASSIUM PHOSPHATE 44 MEQ in SODIUM CHLORIDE 0.9% 500 ML IV SCH ×2 (10:43→18:24)
[2018-04-29 12:04] VITALS: BP 106/69
[2018-04-29 19:40] VITALS: BP 146/99
[2018-04-30 01:19] VITALS: BP 122/85
[2018-04-30] MEDS: SODIUM CHLORIDE 0.9% 1,000 ML IV SCH ×2 (01:56→09:59)
[2018-04-30] MEDS: HEPARIN 5,000 UNITS/ML, 1ML SQ SCH ×2 (02:00→09:59)
[2018-04-30] MEDS: morphine SULFATE 10 MG/ML, 1ML IVPush PRN ×3 (04:30→13:39)
[2018-04-30 05:48] LABS: ALANINE AMINOTRANSFERASE 18 U/L (12-78); ALBUMIN 2.5 g/dL (3.4-5.0); ANION GAP 5 mmol/L (5-15); BASOPHILS # (AUTO) 0.07 x10^3/uL (0-0.1); BASOPHILS % (AUTO) 1 % (0-1); CALCIUM 7.3 mg/dL (8.5-10.1); CHLORIDE 117 mmol/L (98-107); CREATININE 0.72 mg/dL (0.55-1.02); EOSINOPHILS # (AUTO) 0.09 x10^3/uL (0-0.4); EOSINOPHILS % (AUTO) 1 % (1-7); LYMPHOCYTES # (AUTO) 2.53 x10^3/uL (1-3.4); LYMPHOCYTES % (AUTO) 41 % (22-44); MD NO; MEAN CORPUSCULAR HEMOGLOBIN 30.4 pg (27.0-34.8); MEAN CORPUSCULAR HGB CONC 33.1 g/dL (32.4-35.8); MEAN CORPUSCULAR VOLUME 91.8 fL (80-100); MONOCYTES # (AUTO) 0.61 x10^3/uL (0.2-0.8); MONOCYTES % (AUTO) 10 % (2-9); NEUTROPHILS # (AUTO) 2.94 x10^3/uL (1.8-6.8); NEUTROPHILS % (AUTO) 47 % (42-75); PLATELET COUNT 293 x10^3/uL (130-400); RED BLOOD COUNT 4.09 x10^6/uL (3.82-5.3); RED CELL DISTRIBUTION WIDTH 13.8 % (9.6-15.2)
[2018-04-30 05:50] LABS: ALKALINE PHOSPHATASE 55 U/L (45-117); BILIRUBIN,TOTAL 0.2 mg/dL (0.2-1.0); TOTAL PROTEIN 5.4 g/dL (6.4-8.2)
[2018-04-30 06:39] VITALS: BP 135/87
[2018-04-30] MEDS: PANTOPRAZOLE 40 MG IV IVPush SCH (08:55)
[2018-04-30] MEDS: CEFTRIAXONE PMX 2GM/50ML 50 ML IV SCH (09:58)
[2018-04-30 12:17] VITALS: BP 155/88
[2018-04-30] MEDS ORDERED: MAGN400T26 PO (13:55)
[2018-04-30] MEDS ORDERED: CEFD300C37 PO (13:55)
[2018-04-30] MEDS ORDERED: PHOS250T3 PO (13:55)
[2018-04-30] MEDS ORDERED: SIMV20TA PO (13:56)
== END 2018-04-30 14:44 | disposition home or self-care (01) | DRG 682 ==
LOC: ED 04:43 → EDIP 07:18 → 4WST 08:14 → 5SO 09:33
PROVIDERS: ADMIT Hospitalist; ATTEND Internal Medicine
DX: N17.0 Acute kidney failure with tubular necrosis (principal); E43 Unspecified severe protein-calorie malnutrition; N39.0 Urinary tract infection, site not specified; A08.4 Viral intestinal infection, unspecified; R11.2 Nausea with vomiting, unspecified; R10.11 Right upper quadrant pain; E87.6 Hypokalemia; E78.5 Hyperlipidemia, unspecified; E83.39 Other disorders of phosphorus metabolism; F41.1 Generalized anxiety disorder; I10 Essential (primary) hypertension; K21.9 Gastro-esophageal reflux disease without esophagitis; R19.7 Diarrhea, unspecified; K44.9 Diaphragmatic hernia without obstruction or gangrene; N28.1 Cyst of kidney, acquired; F32.9 Major depressive disorder, single episode, unspecified; F41.9 Anxiety disorder, unspecified; Z79.899 Other long term (current) drug therapy; Z87.891 Personal history of nicotine dependence; Z90.710 Acquired absence of both cervix and uterus
CPT/HCPCS: 36415; 74177; 80053; 80061; 81001; 83690; 83735; 84100; 84132; 84443; 84484; 85025; 86677; 87086; 93005; 93306; 99285; G0378; J0696; J1644; J2405; J3480; Q0162; Q9967; C9113; J2270; J3475; J7030; J7040

== ENCOUNTER 2018-05-02 17:38 | Emergency (ER) | payer MEDICARE, MEDICAID ==
[~2018-05-02] VITALS: Ht 162.6 cm; Wt 60.4 kg
[2018-05-02 17:38] VITALS: BP 118/72
[~2018-05-02 17:38] MED LIST changes: +CEFD300C37 PO; +MAGN400T26 PO; +PHOS250T3 PO; +SIMV20TA PO
[2018-05-02 18:33] LABS: MICROSCOPIC NOT IND
[2018-05-02 18:38] LABS: CULTURE INDICATED? NO
[2018-05-02 18:42] LABS: AMPHETAMINE SCREEN, URINE Negative (Negative); BARBITURATE SCREEN, URINE Negative (Negative); BENZODIAZEPINE SCREEN, URINE Positive (Negative); CANNABINOID SCREEN, URINE Negative (Negative); COCAINE SCREEN, URINE Negative (Negative); METHADONE SCREEN, URINE Negative (Negative); OPIATE SCREEN, URINE Positive (Negative)
[2018-05-02 19:33] LABS: BASOPHILS # (AUTO) 0.02 x10^3/uL (0-0.1); BASOPHILS % (AUTO) 0 % (0-1); EOSINOPHILS # (AUTO) 0.08 x10^3/uL (0-0.4); EOSINOPHILS % (AUTO) 1 % (1-7); LYMPHOCYTES # (AUTO) 1.69 x10^3/uL (1-3.4); LYMPHOCYTES % (AUTO) 19 % (22-44); MD NO; MEAN CORPUSCULAR HGB CONC 33.5 g/dL (32.4-35.8); MEAN CORPUSCULAR VOLUME 89.5 fL (80-100); MEAN PLATELET VOLUME 8.1 fL (7.4-10.4); MONOCYTES # (AUTO) 0.54 x10^3/uL (0.2-0.8); MONOCYTES % (AUTO) 6 % (2-9); NEUTROPHILS # (AUTO) 6.43 x10^3/uL (1.8-6.8); NEUTROPHILS % (AUTO) 73 % (42-75); PLATELET COUNT 406 x10^3/uL (130-400); RED BLOOD COUNT 5.21 x10^6/uL (3.82-5.3)
[2018-05-02 19:45] LABS: ALANINE AMINOTRANSFERASE 39 U/L (12-78); ALBUMIN 3.7 g/dL (3.4-5.0); ANION GAP 9 mmol/L (5-15); CALCIUM 9.2 mg/dL (8.5-10.1); CHLORIDE 103 mmol/L (98-107); CREATININE 1.16 mg/dL (0.55-1.02)
[2018-05-02 19:55] LABS: ALKALINE PHOSPHATASE 79 U/L (45-117); BILIRUBIN,TOTAL 0.5 mg/dL (0.2-1.0); TOTAL PROTEIN 7.6 g/dL (6.4-8.2)
[2018-05-02] MEDS ORDERED: MAALOX/HYOSCYAMINE/LIDOCAINE 45 ML BTL ONE (20:05)
[2018-05-02] MEDS ORDERED: KETOROLAC 30 MG/1 ML ONE (21:11)
--- NOTE | 2018-05-02 21:19 | NUR ---
FREEMAN RN NOTE: MEDICAL CLEARANCE FAXED TO [facility], SPOKE TO LEIGHA STATING THEY WILL ACCEPT THE PT BACK. DR. ANAYA AT [facility] TO ACCEPT THE PT.
[2018-05-02] MEDS ORDERED: KETOROLAC 30 MG/1 ML IM ONE (21:30)
--- NOTE | 2018-05-02 21:45 | NUR ---
[facility] CALLED PER PT'S MEDICAID INSURANCE. PER DAO AT [facility], HEALTH PLAN NOT UP TO DATE SO TRANSPORT NOT ABLE TO BE ARRANGED. [facility] NOTIFIED OF [facility] DECLINATION OF TRANSPORT.
[2018-05-02] MEDS ORDERED: MAALOX/HYOSCYAMINE/LIDOCAINE 45 ML BTL PO ONE (22:00)
--- NOTE | 2018-05-02 22:24 | NUR ---
Patient/Caregiver given discharge instructions and they have confirmed that they understand the instructions. Patient ambulatory with steady gait.
== END 2018-05-02 22:26 | disposition home or self-care (01) ==
LOC: ED 18:11
DX: R10.31 Right lower quadrant pain (principal); I10 Essential (primary) hypertension; F41.1 Generalized anxiety disorder; F32.9 Major depressive disorder, single episode, unspecified; Z90.49 Acquired absence of other specified parts of digestive tract; Z87.891 Personal history of nicotine dependence
CPT/HCPCS: 36415; 80053; 80307; 81003; 83690; 85025; 96372; 99285; J1885; 99283

== ENCOUNTER 2019-02-03 10:10 | Emergency (ER) | payer MEDICARE, MEDICAID ==
[~2019-02-03] VITALS: Ht 162.6 cm; Wt 65.0 kg
[~2019-02-03 10:10] MED LIST changes: -PROP80CA12 PO; +PROP80CA47 PO
--- NOTE | 2019-02-03 10:19 | NUR ---
Bib by fire for abd pain with vomiting x 3 days. Reports similiar symptoms which have dx as Gastritis/H phylori Denies etoh/illicits/withdrawing off reportedly prescribed valium Asking for "pain medicine that isnt tylenol"
[2019-02-03] MEDS ORDERED: ONDANSETRON 2MG/ML, 2ML IVPush ONE (11:00)
[2019-02-03] MEDS ORDERED: MORPHINE SULFATE 4 MG/ML, 1ML IVPush PRN (11:00)
[2019-02-03] MEDS ORDERED: MAALOX/HYOSCYAMINE/LIDOCAINE 45 ML BTL PO ONE (11:00)
[2019-02-03] MEDS ORDERED: PROMETHAZINE 25 MG/ML, 1ML IM ONE (11:00)
[2019-02-03 11:05] LABS: BASOPHILS # (AUTO) 0.01 x10^3/uL (0-0.1); BASOPHILS % (AUTO) 0 % (0-1); EOSINOPHILS # (AUTO) 0.03 x10^3/uL (0-0.4); EOSINOPHILS % (AUTO) 0 % (1-7); LYMPHOCYTES # (AUTO) 0.98 x10^3/uL (1-3.4); LYMPHOCYTES % (AUTO) 12 % (22-44); MD NO; MEAN CORPUSCULAR HEMOGLOBIN 27.3 pg (27.0-34.8); MEAN CORPUSCULAR HGB CONC 32.7 g/dL (32.4-35.8); MEAN CORPUSCULAR VOLUME 83.6 fL (80-100); MEAN PLATELET VOLUME 8.3 fL (7.4-10.4); MONOCYTES # (AUTO) 0.15 x10^3/uL (0.2-0.8); MONOCYTES % (AUTO) 2 % (2-9); NEUTROPHILS # (AUTO) 7.15 x10^3/uL (1.8-6.8); NEUTROPHILS % (AUTO) 86 % (42-75); PLATELET COUNT 448 x10^3/uL (130-400); RED BLOOD COUNT 5.25 x10^6/uL (3.82-5.3); RED CELL DISTRIBUTION WIDTH 16.6 % (9.6-15.2)
[2019-02-03 11:19] LABS: ALANINE AMINOTRANSFERASE 33 U/L (12-78); ALBUMIN 4.8 g/dL (3.4-5.0); ANION GAP 18 mmol/L (5-15); CALCIUM 10.3 mg/dL (8.5-10.1); CHLORIDE 98 mmol/L (98-107); CREATININE 1.08 mg/dL (0.55-1.02)
[2019-02-03 11:22] LABS: ALKALINE PHOSPHATASE 78 U/L (45-117); BILIRUBIN,TOTAL 1.2 mg/dL (0.2-1.0); TOTAL PROTEIN 8.8 g/dL (6.4-8.2)
--- NOTE | 2019-02-03 11:23 | NUR ---
ua collected and sent piv placed to right ac-patient then medicated per emar
[2019-02-03] MEDS ORDERED: PROMETHAZINE 25 MG/ML, 1ML ONE (11:25)
[2019-02-03] MEDS ORDERED: ONDANSETRON 2MG/ML, 2ML ONE (11:25)
[2019-02-03] MEDS ORDERED: MORPHINE SULFATE 4 MG/ML, 1ML ONE (11:26)
[2019-02-03] MEDS ORDERED: MAALOX/HYOSCYAMINE/LIDOCAINE 45 ML BTL ONE (11:27)
[2019-02-03 11:33] LABS: MICROSCOPIC AUTO
[2019-02-03 11:35] LABS: CULTURE INDICATED? YES
[2019-02-03] MEDS ORDERED: OMNIPAQUE 350 MG/ML, 100ML BOTTLE ONE (12:15)
--- NOTE | 2019-02-03 12:18 | NUR ---
With reassessment patient report "my abd feels much better" Asking for water/good color. But "i want a lexapro & valium" Vitals improved Provider made aware
[2019-02-03 12:20] VITALS: BP 172/98
[2019-02-03] MEDS ORDERED: DIAZEPAM 5 MG TABLET PO ONE (13:00)
== END 2019-02-03 13:07 | disposition home or self-care (01) ==
LOC: ED 13:01
DX: R10.84 Generalized abdominal pain (principal); R11.2 Nausea with vomiting, unspecified; R10.11 Right upper quadrant pain; R10.13 Epigastric pain; I10 Essential (primary) hypertension; Z90.710 Acquired absence of both cervix and uterus; Z90.89 Acquired absence of other organs; Z87.891 Personal history of nicotine dependence
CPT/HCPCS: 36415; 74177; 80053; 81001; 83690; 85025; 87086; 96372; 96374; 96375; 99284; J2270; J2405; J2550; Q9967

== ENCOUNTER → 2020-01-28 | Outpatient (CLI) | payer MEDICARE, MEDICAID ==
[~2020-01-28] MED LIST changes: -PANT40TA5 PO; +PANT40TA6 PO
== END | disposition home or self-care (01) ==
LOC: CFH 13:02
PROVIDERS: ATTEND Nurse Practitioner
DX: Z12.31 Encounter for screening mammogram for malignant neoplasm of breast (principal)
CPT/HCPCS: 77063; 77067